=== PATIENT | male | born 1965 | race Caucasian/White ===

== ENCOUNTER 2020-03-06 22:36 | Emergency (ER) | payer MEDICAID ==
[~2020-03-06] VITALS: Ht 180.3 cm; Wt 103.0 kg
[2020-03-06] MEDS ORDERED: SEROQUEL 50 MG50 M1 PO (22:45)
[2020-03-06] MEDS ORDERED: NEURONTIN 300M300 M2 PO (22:45)
[2020-03-06] MEDS ORDERED: REVIA 50 MG TAB50 M1 PO (22:46)
[2020-03-06] MEDS ORDERED: TRAZODONE HCL50 MG PO (22:46)
[2020-03-06] MEDS ORDERED: PROZAC20 MG PO (22:47)
[2020-03-06 23:06] LABS: AMP/METHAMP Negative (Negative); BARBITURATES Negative (Negative); BENZODIAZEPINES Negative (Negative); COCAINE Negative (Negative); METHADONE Negative (Negative); OPIATES Negative (Negative); PCP Negative (Negative); THC Negative (Negative)
[2020-03-06 23:08] LABS: URINE BILIRUBIN NEGATIVE (Negative); URINE BLOOD NEGATIVE (Negative); URINE CLARITY CLEAR; URINE COLOR YELLOW; URINE GLUCOSE-RANDOM NEGATIVE (Negative); URINE KETONES 1+ (Negative); URINE LEUKOCYTES-REFLEX NEGATIVE (Negative); URINE NITRITE-REFLEX NEGATIVE (Negative); URINE PROTEIN NEGATIVE (Negative); URINE SPECIFIC GRAVITY 1.025 (1.005-1.030); URINE UROBILINOGEN 0.2 E.U./dl (0.2-1.0)
[2020-03-06 23:16] LABS: ABSOLUTE EOSINOPHILS 0.3 thou/uL (0.0-0.7); ABSOLUTE LYMPHOCYTES 1.9 thou/uL (0.8-5.3); ABSOLUTE MONOCYTES 0.4 thou/uL (0.0-1.2); ABSOLUTE NEUTROPHILS 1.8 thou/uL (1.6-8.1); BASOPHILS 0.8 %; EOSINOPHILS 6.5 %; HEMATOCRIT 37.3 % (42.0-52.0); HEMOGLOBIN 13.2 gm/dL (14.0-18.0); LYMPHOCYTES 43.9 %; MCH 32.4 pg (26.0-34.0); MCHC 35.5 g/dL (28.0-37.0); MCV 91.5 fL (80.0-100.0); MPV 8.3 fl. (7.2-11.1); NUCLEATED RBCS 0 /100WBC; PLATELET COUNT* 176 thou/uL (150-400); POLYS 40.8 %; RBC 4.07 mil/uL (4.50-6.00); RDW-CV 11.7 % (10.5-14.5); WBC 4.4 thou/uL (4.0-11.0)
[2020-03-06 23:22] LABS: CALCIUM 7.6 mg/dL (8.5-10.1); CREATININE 0.9 mg/dL (0.6-1.3); POTASSIUM 3.6 mmol/L (3.5-5.1)
[2020-03-06 23:26] LABS: ALBUMIN 3.6 g/dL (3.4-5.0); MAGNESIUM 1.7 mg/dL (1.8-2.4); TOTAL BILIRUBIN 0.3 mg/dL (<0.1-1.0); TOTAL PROTEIN 7.1 g/dL (6.4-8.2)
[2020-03-06 23:31] LABS: ALCOHOL 169 mg/dL (<10); SALICYLATE < 2.8 mg/dL (2.8-20.0)
[2020-03-06 23:33] LABS: ACETAMINOPHEN < 2 ug/mL (10-30)
[2020-03-07 13:25] VITALS: BP 122/73
== END 2020-03-07 13:27 ==
LOC: M.ERS 22:36
PROVIDERS: Emergency Medicine
DX: R45.851 Suicidal ideations (principal)